=== PATIENT | male | born 1980 | race Caucasian/White ===

== ENCOUNTER 2020-02-21 21:04 | Emergency (ER) | payer BC, OTHER, SELFPAY ==
[2020-02-21] MEDS ORDERED: Lidocaine 1% PF 5 ML VIAL ONE (21:26)
[2020-02-21] MEDS ORDERED: Adacel (T-DAP) 0.5 ML SYRINGE ONE (21:32)
[2020-02-21] MEDS ORDERED: Bacitracin 1 PK ONE (22:12)
[2020-02-21] MEDS ORDERED: Cephalexin 250 MG CAP ONE (22:12)
== END 2020-02-21 22:30 | disposition home or self-care (01) ==
LOC: BURERS 21:04
DX: S61.211A Laceration without foreign body of left index finger without damage to nail, initial encounter (principal); W26.0XXA Contact with knife, initial encounter
CPT/HCPCS: 12002; 90471; 90715